=== PATIENT | female | born 1965 | race Caucasian/White ===

== ENCOUNTER → 2016-12-21 10:41 | Day surgery (SDC) | payer OTHER ==
[~2016-12-21 10:41] MED LIST: Buffered Lidocaine 1% SYRIN* 3 ML/SYR SYRINGE INTRADERM ONE; DiMENhydriNATE IV* 50 MG/ML VIAL ONE; Famotidine IV* 10 MG/ML 2 ML (20 mg) IV ONE; Famotidine IV* 10 MG/ML 2 ML (20 mg) ONE; Ketorolac INJ* 30 MG/ML 1 ML VIAL ONE; Lidocaine 2% PF * 5 ML VIAL ONE; Midazolam* 1 MG/ML 5 ML VIAL (5 MG) ONE; Ondansetron INJ* 2 MG/ML VIAL ONE; Propofol* 10 MG/ML 20 ML BTL IV PUSH ONE; fentaNYL* 50 MCG/ML 2 ML VIAL (100 MCG VIAL) ONE
[2016-12-21 11:05] LABS: Manual Entry Verification AS; UR Preg Internal Control QC Line Present; UR Preg Kit Lot# 6030156
[2016-12-21 14:42] VITALS: BP 119/62
--- NOTE | 2016-12-21 22:04 | OP ---
AMENDED REPORT NOW INCLUDES DATE OF OPERATION - ESIGNED BEFORE ADJUSTMENT * DATE OF OPERATION: 12/21/16 DATE OF : 67 SURGEON: Adina Calloway MD ANESTHESIOLOGIST: Loreta Gonzalez MD ANESTHESIA: Spinal with sedation. PRE-OP DIAGNOSES: Menorrhagia, severe anemia, thickened endometrium on ultrasound, fibroid uterus. POST-OP DIAGNOSES: Menorrhagia, severe anemia, thickened endometrium on ultrasound, fibroid uterus. OPERATIVE PROCEDURE: Exam under anesthesia, dilation, hysteroscopy, curettage. ESTIMATED BLOOD LOSS: Less than 50 cc. SPECIMENS: Endometrial curettings. FLUIDS: Per Anesthesia. COMPLICATIONS: None. COUNTS: Sponge, lap, and needle count were correct x2. FINDINGS: Enlarged, 16weeks sized, asymmetric uterus, sounds to 11. The cervix is midline. The cervix comes down to a second-degree prolapse with complete relaxation. There also was polypoid appearing material within the endometrium arising from the fundus. No adnexal masses were palpated. CONDITION: The patient was brought to the recovery room, awake and in stable condition. DESCRIPTION OF PROCEDURE: The patient was brought to the operating room. When spinal anesthesia was found to be adequate, the patient was was prepped and draped in the usual sterile fashion in the dorsal lithotomy position. A time- out was performed. Exam under anesthesia was performed with the above findings noted. The bladder was emptied with a straight catheter of 200 cc clear urine. The anterior lip of the cervix was grasped with the single tooth tenaculum. The cervix was gently and easily dilated with the graduated Gill dilators. The hysteroscope was introduced, there was polypoid-appearing material was within the endometrium and there was also an area that appeared consistent with fibroid at the fundus. Curettage was performed. Endometrial curettings were sent to pathology. The tenaculum was removed from the anterior lip of the cervix. Excellent hemostasis was noted. All instruments were removed from the vagina, and the patient was brought to recovery room awake and in stable condition. [id number]/[facility] #: [id number] [facility]
== END | disposition home or self-care (01) ==
LOC: OR 10:41
PROVIDERS: ATTEND Obstetrics & Gynecology
DX: N92.0 Excessive and frequent menstruation with regular cycle (principal); D50.0 Iron deficiency anemia secondary to blood loss (chronic); N84.0 Polyp of corpus uteri; N84.1 Polyp of cervix uteri; D25.9 Leiomyoma of uterus, unspecified
CPT/HCPCS: 81025; 88305; J1240; J1885; J2250; J2405; J2704; J3010